=== PATIENT | male | born 1940 | race African-American/Black ===

== ENCOUNTER 2023-06-08 09:51 | Observation (INO) | payer BC, SELFPAY ==
[2023-06-08] VITALS (40 sets, daily range): BP systolic 152–196; BP diastolic 76–102; PULSE 59–93; RESP 11–28; TEMP 36.4–36.6; O2SAT 94–100
--- NOTE | ~2023-06-08 | CT_ITS ---
CT head without contrast Indication: Head injury Technique: Serial scans were obtained through the brain without the administration of contrast. Dose reduction technique was used on this scan by utilizing automated exposure control and iterative recon struction technique. The dose-length product (DLP) was 605.33 mGy-cm. Findings: There is no evidence of intracranial hemorrhage, mass lesion, or acute infarct. The ventri cles and subarachnoid spaces are dilated, consistent with moderate atrophy. Low attenuation regions are seen within the periventricular white matter bilaterally, likely representing changes from chroni c microvascular ischemic disease. There is no evidence of edema, mass effect or midline shift. The visualized paranasal sinuses and mastoid air cells are clear. Impression: No intracranial hemorrhage, mass, or acute infarct. Atrophy and chronic white matter changes, as above. Reviewed, dictated and finalized at [facility]. [employer] Impression: No intracranial hemorrhage, mass, or acute infarct. Atrophy and chronic white matter changes, as above.
--- NOTE | ~2023-06-08 | CT_ITS ---
CT Facial Bones Clinical Indication: Facial injury Technique: Contiguous axial scans were obtained through the facial bones followed by coronal and sagi ttal reconstructions. Dose reduction technique was used on this scan by utilizing automated exposure control and iterative reconstruction technique. The dose-length product (DLP) was 551.88 mGy-cm. Findings: No fractures are identified. The visualized paranasal sinuses are clear. Intraorbital soft tissues appear normal. There is mild left periorbital soft tissue swelling. Impression: No fracture identified. Mild left periorbital soft tissue swelling. Reviewed, dictated and finalized at location . [employer] Impression: No fracture identified. Mild left periorbital soft tissue swelling.
--- NOTE | ~2023-06-08 | CT_ITS ---
EXAMINATION: CTA BRAIN/CAROTID DATE: 06/08/2023 16:23 INDICATION: Vertigo TECHNIQUE: Computed tomographic angiography (CTA) of the head and neck was performed with 100 mL Omni paque-350 intravenous contrast. Multiplanar reconstructions and maximum intensity projection 3D-recon structions of the carotid arteries and of the intracranial arteries were created by the technologist on a separate workstation. Automated exposure control and iterative reconstruction technique were emp loyed.The dose-length product was 1132.63 mGy-cm. COMPARISON: Head and maxillofacial CT dated 06/08/2023 FINDINGS: Carotid arteries: Visualized portion of the aortic arch and great vessels arising from the arch demonstrate small amoun t of noncalcified atherosclerotic plaque without significant stenosis. No dissection. Left vertebral artery is dominant with no evident stenosis along the excreted portions of the bilateral vertebral ar teries. There is no evident atherosclerotic plaque with 0% stenosis of the right and left carotid bul bs relative to normal distal artery lumen diameter (NASCET criteria). Potentially refluxed fluid in t he visualized upper thoracic esophagus. Visualized portions of the mid and upper lungs are clear. Cer vical soft tissues are unremarkable. Severe cervical spondylosis. No acute osseous abnormality in the cervical spine. Intracranial arteries Left vertebral artery is dominant with small amount of nonhemodynamically significant atherosclerotic plaque at the level of the foramen magnum. There is no hemodynamically significant stenosis in the v ertebral, basilar and internal carotid arteries. There are no aneurysms identified. Both A1 and P1 s egments are patent. There is a patent anterior to indicating artery. Cerebral arterial arborization a ppears symmetric. No abnormally enhancing brain lesions identified. Changes of bilateral intraocular lens replacement. There is debris/cerumen at the left external auditory canal. The nasal sinuses, deep ateral middle ear cavities and mastoid air cells are clear. IMPRESSION: 1. 0% stenosis of the right and left carotid bulbs relative to normal distal artery lumen diameter (N ASCET criteria). 2. Unremarkable cerebral CT angiogram with no hemodynamically significant stenosis, aneurysm or throm bosis. Reviewed, dictated and finalized at location A. WE[employer] SALES ASSOCIATE IMPRESSION: 1. 0% stenosis of the right and left carotid bulbs relative to normal distal ar [place] lumen diameter (NASCET criteria). 2. Unremarkable cerebral CT angiogram with no hemodynamically significant steno sis, aneurysm or thrombosis.
--- NOTE | 2023-06-08 12:34 | PC.NURSE ---
Family reports that patients N/V started after he fell last night striking the left side of the face on a dresser. Pt c/o feeling dizzy prior to falling. Swelling and bruising noted to left eye.
[2023-06-08] MEDS: ONDANSETRON INJ 4 MG/2 ML VIAL IV PUSH ×2 (12:52→15:51)
[2023-06-08 13:06] LABS: Alanine Aminotransferase 17 U/L (6-50); Albumin Level 4.2 g/dL (3.5-5.1); Alkaline Phosphatase 83 U/L (38-126); Anion Gap 10 mmol/L (8-16); Aspartate Amino Transferase 25 U/L (17-59); Bilirubin,Total 0.7 mg/dL (0.2-1.3); Blood Urea Nitrogen 11 mg/dL (9-20); Carbon Dioxide 25 mmol/L (22-30); Chloride 104 mmol/L (98-107); Estimated CRCL calculation 61 ml/min; Estimated Glomerular Filt Rate > 60; Glucose 196 mg/dL (65-110); Lipase 32 U/L (23-300); Potassium 4.1 mmol/L (3.4-5.0); Sodium 139 mmol/L (137-145)
[2023-06-08 13:13] LABS: Basophils Percent Auto 0.3 % (0.2-1.2); Eosinophils Percent Auto 0.1 % (0-4.4); Hematocrit 40.3 % (42.0-52.0); Hemoglobin 13.6 g/dL (14.0-18.0); Immature Granulocyte Absolute 0.05 K/mm3 (0.00-0.031); Immature Granulocyte Percent A 0.4 % (0-0.5); Lymphocytes Absolute Auto 1.31 K/mm3 (0.9-3.2); Lymphocytes Percent Auto 9.7 % (18.3-44.2); Mean Corpuscular HGB Conc 33.7 g/dl (32-36); Mean Corpuscular Hemoglobin 32.9 pg (26-34); Mean Corpuscular Volume 97.3 fl (80-100); Monocytes Absolute Auto 0.5 K/mm3 (0.1-0.6); Monocytes Percent Auto 3.5 % (2.6-8.5); Neutrophils Absolute Auto 11.7 K/mm3 (1.3-6.7); Platelet Count Result 325 k/mm3 (150-375); Red Blood Count 4.14 M/mm3 (4.6-6.20); Red Cell Distribution Width 15.4 % (11.5-14.5); White Blood Count 13.6 K/mm3 (4.5-10.0)
--- NOTE | 2023-06-08 13:53 | ED.GENADULT ---
HPI - General Adult General Chief complaint: Nausea/Vomiting/Diarrhea Stated complaint: N/V BAD MEATLOAF Time Seen by Provider: 06/08/23 13:03 History of Present Illness HPI narrative: 83-year-old male presents to the emergency department for evaluation of nausea vomiting and a head injury. Patient states that he developed nausea and vomiting last night. Patient had 1 episode of emesis again this morning. Patient also had a ground level fall during which he struck his face. Patient denies any loss of consciousness. Patient does complain of some left-sided facial pain associated with a contusion over the left eye. At time of evaluation patient denies any complaints. Patient states he no longer feels nauseous after he received a dose of Zofran and patient denies any associated abdominal pain. Related Data Allergies Allergy/AdvReac Type Severity Reaction Status Date / Time No Known Allergies Allergy Verified 06/08/23 12:40 Review of Systems Review of Systems: All systems reviewed & are unremarkable except as noted in HPI and below Exam Narrative: APPEARANCE: Well appearing, no pain, no distress, well-nourished. HEAD: normocephalic, atraumatic. EYES: left eye contusion normal visual knutson NOSE: Normal no drainage EARS:TMS clear with good light reflex. THROAT: Pharynx clear, no exudate. NECK: Supple. No adenopathy, no masses. RESPIRATORY: Airway patent, respirations nonlabored. Clear to auscultation bilaterally, no rales, rhonchi, wheezing. CARDIOVASCULAR: Regular rate and rhythm without murmurs rubs or gallops. ABDOMINAL: Soft, nontender, nondistended, normal bowel sounds MUSCULOSKELETAL: Moves all extremities. Strength/ROM intact, No edema, No calf tenderness. NEURO: Alert. Cranial nerves II through XII intact. grossly intact. SKIN: Warm, dry. Normal Color Course Course Emergency Course: 83-year-old male presenting to the ED for evaluation of nausea vomiting and a left-sided facial injury. Head and facial CT were negative for acute findings. Patient does feel improved after treatment with Zofran. Patient denies any associated abdominal pain. Patient and family are updated on the results of the workup. All questions and concerns were addressed. Patient was comfortable plan for discharge close follow-up. Patient was advised to follow a clear liquid diet for the next few days and was provided Zofran for nausea control. Prior to discharge patient was ambulated and patient did not do well. Patient felt that he was having a movement/spinning sensation. CTA was ordered and patient was also provided meclizine. Vital Signs Vital signs: Vital Signs Temperature 97.9 F 06/08/23 10:14 Pulse Rate 63 06/08/23 10:14 Respiratory Rate 18 06/08/23 10:14 Blood Pressure 152/78 H 06/08/23 10:14 Pulse Oximetry 100 06/08/23 10:14 Oxygen Delivery Room Air 06/08/23 10:14 Temperature 97.9 F 06/08/23 10:14 Pulse Rate 71 06/08/23 17:50 Respiratory Rate 13 06/08/23 17:50 Blood Pressure 165/83 H 06/08/23 18:14 Pulse Oximetry 100 06/08/23 17:09 Oxygen Delivery Room Air 06/08/23 10:14 Medical Decision Making Differential Diagnosis Differential Diagnosis: vertigo, facial injury, CVA, TIA, nausea vomiting Vital Signs Vital Signs: Vital Signs Temperature 97.9 F 06/08/23 10:14 Pulse Rate 63 06/08/23 10:14 Respiratory Rate 18 06/08/23 10:14 Blood Pressure 152/78 H 06/08/23 10:14 Pulse Oximetry 100 06/08/23 10:14 Oxygen Delivery Room Air 06/08/23 10:14 Temperature 97.9 F 06/08/23 10:14 Pulse Rate 71 06/08/23 17:50 Respiratory Rate 13 06/08/23 17:50 Blood Pressure 165/83 H 06/08/23 18:14 Pulse Oximetry 100 06/08/23 17:09 Oxygen Delivery Room Air 06/08/23 10:14 Lab Data Lab results reviewed: Yes I reviewed the patient's lab results. 06/08/23 12:51 06/08/23 12:51 Labs: Lab Results 06/08/23 06/08/23 12/
[2023-06-08 14:27] LABS: Influenza A QL RT-PCR Negative (Negative); Influenza B QL RT-PCR Negative (Negative); RSV RNA, RT-PCR Negative (Negative); SARS-CoV-2 RNA PCR Negative (Negative)
[2023-06-08 15:19] LABS: Appearance Urine Clear (Clear); Bacteria Urine None Seen /hpf; Bilirubin Urine Negative (Negative); Blood Urine Negative (Negative); Color Urine Yellow (Yellow); Glucose Urine UA 2+ mg/dL (Negative); Ketones Urine Trace mg/dL (Negative); Leukocyte Esterase Ur Negative LEU/UL (Negative); Nitrate Urine Negative (Negative); Non Pathogenic Casts 0-2; Protein Urine 2+ mg/dL (Negative); RBC Urine 0-2 /hpf (0-2); Specific Grav Ur 1.018 (1.001-1.035); Squamous Epithelial Cell Urine None seen /hpf (Few); pH Urine 5.5 (5.0-9.0)
[2023-06-08 15:21] LABS: Add Urine Microscopic? YES
--- NOTE | 2023-06-08 15:45 | PC.NURSE ---
Attempted to discharge pt. Pt very unsteady when attempting to stand. Pt became nauseated and vomited when getting up. ERP aware.
--- NOTE | 2023-06-08 15:47 | PC.NURSE ---
unsuccessful ambulation attempt. pt weaving in hallway with his cane. kept changing from side to side to correct veering. this rn had to steady pt multiple times. family states this is not how pt normally walks. upon returning to bed pt began vomiting green bile. edp notified.
[2023-06-08] MEDS: MECLIZINE HCL 25 MG TABLET PO (15:51)
--- NOTE | 2023-06-08 17:17 | PC.NURSE ---
Attempted to ambulate pt again. Pt walked approx 20 feet and became unsteady on feet requiring assist of 2 staff to walk.
--- NOTE | 2023-06-08 17:56 | PM.IMHP ---
H&P: HPI History of Present Illness Date/Time: 06/08/23 18:00 Chief Complaint: Vertigo and nausea. Narrative: This is very pleasant 83-year-old male with hypertension, type 2 diabetes mellitus, and benign prostatic hyperplasia who presented to the emergency department via EMS from home for evaluation of vertigo and nausea. The patient provides the following history. He and his ate meatloaf for dinner last night and several hours thereafter he developed nausea. He was able to fall asleep but got up a little after midnight to go to the bathroom. When he stood up to get out of bed he reports feeling extremely dizzy and reports that the room was spinning severely. This caused him to lose his balance and he fell to the left, striking his head on the dresser. At the same time he felt extreme nausea and reports having several episodes of emesis. He denies loss of consciousness and injury in the fall. He was able to get himself up and go back to bed. He continues to have nausea and vertigo which is worse with position changes and head movement. He denies fever, chills, sweats, sinus congestion, diplopia, facial droop, difficulty speaking and swallowing, focal weakness, paresthesias, chest and pleuritic pain, palpitations, shortness of breath, epigastric and abdominal pain, hematemesis, melena, hematochezia. In the ED: He was afebrile on arrival with stable blood pressures which have been running in the 150s to 160s systolic. Labs were significant for a WBC count 13.6, hemoglobin 13.6, glucose 196. Urine was positive for 2+ protein, 2+ glucose, trace ketones, and 6 to 10 WBC. He tested negative for RSV, influenza, and COVID. Head CT showed no acute findings. Facial bone CT showed no fracture and noted mild left periorbital soft tissue swelling. Head and neck CTA showed no hemodynamically significant stenosis, aneurysm, thrombosis, or stenosis of the internal carotid arteries. He is being admitted in this setting for further treatment and evaluation. Review of Systems Review of Systems: Twelve systems were reviewed and are negative except for as per HPI. [facility], [facility] Past Medical History Medical History (Updated 06/08/23 @ 23:05 by Nydia Sanchez PA-C) Benign prostatic hyperplasia Hypertension Type 2 diabetes mellitus Surgical History Surgical History (Updated 06/08/23 @ 23:05 by Nydia Sanchez PA-C) History of transurethral resection of prostate Family History Family History (Updated 06/08/23 @ 23:05 by Nydia Sanchez PA-C) Other Diabetes mellitus Hypertension Social History Social History (Updated 06/08/23 @ 23:06 by Nydia Sanchez PA-C) Social History: Surrogate medical decision maker: Rowan Leone, spouse. Code status: Full code. Smoking status: Never smoker Second hand tobacco smoke exposure: No Alcohol intake: never Substance use: never Lack of Transportation: No Lack of Food: Never True Current Housing: I Have Housing Concerned About Future Housing: No Difficulty Paying Gas/Electric Bills: No Difficulty Paying for Meds: No Currently Unemployed: No Education: Don't Know Difficulty w/ Childcare or Family Care: No Additional living arrangements comments: Lives with spouse in [place]. 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 Spiritual care concerns: No Meds Home Medications and Allergies Home Medications Medication Instructions Recorded Confirmed Type dutasteride 0.5 mg capsule 0.5 mg PO DAILY 06/08/23 06/08/23 History finasteride 5 mg tablet 5 mg PO DAILY 06/08/23 06/08/23 History glyburide 5 mg tablet 10 mg PO DAILY 06/08/23 06/08/23 History metformin 1,000 mg tablet 1,000 mg PO BID 06/08/23 06/08/23 History ondansetron 4 mg disintegrating 4 mg PO Q8H PRN nausea and 06/08/23 Rx tablet vomiting #14 tabs tamsulosin 0.4 mg capsule 0.4 mg PO HS 06/08/23 06/08/23 History valsartan 80 mg tablet 80 mg PO CLEMENT
--- NOTE | 2023-06-08 18:28 | ADMGEN ---
This patient, Darrel Leone Jr., was admitted to Medical Room 345-01. Patient/family oriented to hospital policies and general routines including ID bracelet, bed and alarms, visiting hours, pain management, procedures, bathroom and other care routines, personal items, smoking policy, room service/diet, and visiting hours. Information on how to activate the Rapid Response Team has been discussed. Patient/Family are encouraged to report perceived risks to care and to ask questions if they do not understand what they are told or what they should do.
[2023-06-08 23:29] LABS: Glucose Point of Care 196 mg/dl (65-105)
[2023-06-09] VITALS (11 sets, daily range): BP systolic 123–164; BP diastolic 66–84; PULSE 57–74; RESP 18–20; TEMP 36.2–36.7; O2SAT 99–100
[2023-06-09] MEDS: TAMSULOSIN HCL 0.4 MG CAPSULE PO ×2 (00:57→20:26)
[2023-06-09 05:46] LABS: Hematocrit 38.6 % (42.0-52.0); Hemoglobin 13.6 g/dL (14.0-18.0); Mean Corpuscular HGB Conc 35.2 g/dl (32-36); Mean Corpuscular Hemoglobin 33.2 pg (26-34); Mean Corpuscular Volume 94.1 fl (80-100); Mean Platelet Volume 9.8 fl (7.4-10.4); Platelet Count Result 297 k/mm3 (150-375); Red Cell Distribution Width 14.6 % (11.5-14.5); White Blood Count 13.4 K/mm3 (4.5-10.0)
[2023-06-09 06:02] LABS: Anion Gap 10 mmol/L (8-16); Blood Urea Nitrogen 10 mg/dL (9-20); Calcium 8.9 mg/dL (8.4-10.2); Carbon Dioxide 22 mmol/L (22-30); Chloride 106 mmol/L (98-107); Cholesterol 131 mg/dL (0-200); Estimated CRCL calculation 55 ml/min; Estimated Glomerular Filt Rate > 60; Glucose 159 mg/dL (65-110); HDL Direct 42 mg/dL; Magnesium 1.9 mg/dL (1.6-2.3); Potassium 3.9 mmol/L (3.4-5.0); Sodium 138 mmol/L (137-145); Triglycerides 57 mg/dL (<150)
[2023-06-09 06:13] LABS: LDL Cholesterol Direct 69 mg/dL
[2023-06-09 07:00] LABS: Thyroid Stimulating Hormone Reflex 0.326 uIU/mL (0.465-4.68)
[2023-06-09 07:37] LABS: Hemoglobin A1C 5.8 % (<5.7)
[2023-06-09 07:45] LABS: Free T4 Free Thyroxine Reflex 1.06 ng/dL (0.78-2.19)
[2023-06-09 08:29] LABS: Glucose Point of Care 146 mg/dl (65-105)
[2023-06-09 08:33] LABS: Total Triiodothyronine (T3) 0.79 NG/ML (0.97-1.69)
[2023-06-09] MEDS: VALSARTAN 80 MG TABLET PO (10:11)
[2023-06-09] MEDS: glyBURIDE 5 MG TABLET 10 MG PO (10:11)
[2023-06-09] MEDS: DUTASTERIDE 0.5 MG CAPSULE PO (10:11)
[2023-06-09] MEDS: FINASTERIDE 5 MG TABLET PO (10:11)
[2023-06-09 12:25] LABS: Glucose Point of Care 148 mg/dl (65-105)
--- NOTE | 2023-06-09 14:07 | PM.IMPN ---
Progress Note: A&P Assessment and Plan (1) Vertigo: Code(s): R42 - Dizziness and giddiness Status: Acute Assessment and Plan: Suspect benign paroxysmal positional vertigo given the severity of the vertigo and it is positional nature associated with nausea and vomiting. It seems to be improved with certain positions. Brain MRI has been ordered Telemetry overnight. Echocardiogram pending Check orthostatic vital signs have remained negative. Meclizine q.i.d. p.r.n. for dizziness. (2) UTI (urinary tract infection): Code(s): N39.0 - Urinary tract infection, site not specified Status: Acute Assessment and Plan: Urine culture with 6-10 wbc's, 2+ protein, 2+ glucose and trace ketones. Urine culture pending (3) Hypertension: Code(s): I10 - Essential (primary) hypertension Status: Acute Assessment and Plan: Continue to monitor. (4) Type 2 diabetes mellitus: Code(s): E11.9 - Type 2 diabetes mellitus without complications Status: Acute Assessment and Plan: Insulin Lispro sliding scale, Accu-checks qAc and HS and Hold oral hypoglycemics Initiate hypoglycemic precautions (5) Benign prostatic hyperplasia: Code(s): N40.0 - Benign prostatic hyperplasia without lower urinary tract symptoms Status: Acute Assessment and Plan: Continue Tamsulosin Subjective Date/time seen: 06/09/23 14:07 Interval history: Patient doing well and states that he gets dizzy with changes of position. His description sounds like BPPV. He did have a left cerumen impaction and did ask nurse to do an ear wash of this. patient's at bedside. Answered all of patient and 's questions to the best my ability. Exam Narrative: GENERAL: Comfortable, no acute distress HENMT: moist mucous membranes, left cerumen impaction EYES: EOM intact b/l NECK: no lymphadenopathy RESPIRATORY: clear to auscultation CARDIO: RRR GI: soft, nontender, bowel sounds present SKIN: no rashes EXTREMITIES: no edema, redness or tenderness Objective Data Vital Signs Vital Signs: Vital Signs - 24 hr 06/08/23 14:15 06/08/23 14:17 06/08/23 14:31 Temperature Pulse Rate 60 64 65 Respiratory Rate 13 11 L 14 Blood Pressure 177/86 H Pulse Oximetry 98 100 100 Oxygen Delivery 06/08/23 14:32 12/05/23 14:48 06/08/23 15:00 Temperature Pulse Rate 68 63 Respiratory Rate 14 14 Blood Pressure 179/87 H 182/102 H Pulse Oximetry 99 99 Oxygen Delivery 06/08/23 15:02 06/08/23 15:06 06/08/23 15:19 Temperature Pulse Rate 59 L Respiratory Rate 16 Blood Pressure 186/85 H Pulse Oximetry 94 100 Oxygen Delivery 06/08/23 15:30 06/08/23 15:45 06/08/23 15:47 Temperature Pulse Rate 61 93 77 Respiratory Rate 13 14 13 Blood Pressure 196/95 H Pulse Oximetry 100 Oxygen Delivery 06/08/23 15:48 06/08/23 16:02 06/08/23 16:03 Temperature Pulse Rate 71 73 70 Respiratory Rate 16 14 14 Blood Pressure 171/90 H Pulse Oximetry 99 100 Oxygen Delivery 06/08/23 16:25 06/08/23 16:30 06/08/23 16:45 Temperature Pulse Rate 80 90 75 Respiratory Rate 13 18 15 Blood Pressure Pulse Oximetry Oxygen Delivery 06/08/23 17:00 06/08/23 17:09 06/08/23 17:34 Temperature Pulse Rate 71 89 Respiratory Rate 13 14 23 H Blood Pressure 160/91 H Pulse Oximetry 100 Oxygen Delivery 06/08/23 17:50 06/08/23 18:14 06/08/23 22:13 Temperature 97.5 F L Pulse Rate 71 66 Respiratory Rate 13 18 Blood Pressure 165/83 H 153/76 H Pulse Oximetry 100 Oxygen Delivery 06/08/23 23:29 06/08/23 20:00 06/09/23 00:00 Temperature 98 F Pulse Rate 89 64 57 L Respiratory Rate 17 Blood Pressure 169/102 H Pulse Oximetry 100 Oxygen Delivery 06/09/23 04:00 06/09/23 06:42 06/09/23 06:43 Temperature 97.1 F L Pulse Rate 61 64 Respiratory Rate 18 Blood Pressure
[2023-06-09 17:22] LABS: Glucose Point of Care 165 mg/dl (65-105)
[2023-06-09] MEDS: MECLIZINE HCL 12.5 MG TABLET PO ×2 (17:35→20:27)
--- NOTE | 2023-06-09 23:10 | ECHO_ITS ---
Patient Info Name: Darrel Leone Age: 83 years : 1940 Gender: Male Ht: 69 in Wt: 180 lbs BSA: 2.01 m2 HR: 64 bpm BP: 147 / 79 mmHg Heart Rhythm: Sinus Rhythm Technical Quality: Fair Exam Date: 06/09/2023 10:45 AM Exam Location: Echo Lab Patient Status: Inpatient Admit Date: 06/08/2023 Staff Ordering Physician: Nydia Sanchez PA-C Damper Fitter: Areli Gomes RDCS Attending Provider: Brandon Pimentel MD Referring Physician: Daniel REYNAGA; Exam Type: CA echo doppler color flow Study Info Indications - vertigo, htn Complete two-dimensional, color flow and Doppler transthoracic echocardiogram is performed. Summary 1. Technically difficult study with limited views. 2. Left ventricular chamber dimension is normal. 3. Left ventricular systolic function is normal, estimated at 60-65%. 4. The left ventricular diastolic function is grade I diastolic dysfunction. 5. Right ventricular systolic function is normal. 6. There is trivial anterior pericardial effusion. Left Ventricle Left ventricular chamber dimension is normal. Left ventricular systolic function is normal, estimated at 60-65%. There is no increased left ventricular wall thickness. The left ventricular diastolic function is grade I diastolic dysfunction. Right Ventricle Right ventricular chamber dimension is normal. Right ventricular systolic function is normal. Left Atria Left atrial chamber dimension is normal. Right Atria Right atrial chamber dimension is normal. Atrial Septum Atrial septum is not well visualized. Aortic Valve The aortic valve is not well visualized. There is no aortic valve stenosis. There is no aortic valve regurgitation. Pulmonic Valve The pulmonic valve is not well visualized. Mitral Valve There is trace mitral valve regurgitation. Tricuspid Valve There is trace tricuspid valve regurgitation. Pericardium/Pleural The pericardium appears epicardial fat pad. There is trivial anterior pericardial effusion. Inferior Vena Cava Inferior vena cava is not well visualized. Aorta The aortic root size at the sinus of Valsalva is normal. Left Ventricular Outflow Tract Name Value Normal LVOT 2D LVOT Diameter 2.0 cm LVOT Doppler LVOT Peak Gradient 3 mmHg LVOT Mean Gradient 2 mmHg LVOT VTI 16 cm LVOT VTI/AV VTI Ratio 0.6 LVOT Stroke Volume 52 ml LVOT CO 4.3 l/min LVOT CI 2.2 l/min/m2 Mitral Valve Name Value Normal MV Doppler MV Decel Christian 485 cm/s2 MV PHT 32 ms MV Area (PHT) 6.9 cm2 4.0-5.0 MV Diastolic Function MV E Peak Velocity 53 cm/s
[2023-06-10] VITALS (15 sets, daily range): BP systolic 114–153; BP diastolic 63–93; PULSE 53–94; RESP 16–21; TEMP 36.3–37.1; O2SAT 99–100
[2023-06-10 05:54] LABS: Hematocrit 37.6 % (42.0-52.0); Mean Corpuscular HGB Conc 34.6 g/dl (32-36); Mean Corpuscular Hemoglobin 32.9 pg (26-34); Mean Corpuscular Volume 95.2 fl (80-100); Mean Platelet Volume 9.8 fl (7.4-10.4); Platelet Count Result 275 k/mm3 (150-375); Red Blood Count 3.95 M/mm3 (4.6-6.20); Red Cell Distribution Width 14.9 % (11.5-14.5); White Blood Count 8.7 K/mm3 (4.5-10.0)
[2023-06-10 06:06] LABS: Alanine Aminotransferase 13 U/L (6-50); Albumin Level 3.3 g/dL (3.5-5.1); Alkaline Phosphatase 67 U/L (38-126); Anion Gap 6 mmol/L (8-16); Aspartate Amino Transferase 22 U/L (17-59); Bilirubin,Total 0.7 mg/dL (0.2-1.3); Blood Urea Nitrogen 16 mg/dL (9-20); Calcium 8.6 mg/dL (8.4-10.2); Carbon Dioxide 27 mmol/L (22-30); Chloride 105 mmol/L (98-107); Estimated CRCL calculation 49 ml/min; Estimated Glomerular Filt Rate > 60; Glucose 130 mg/dL (65-110); Potassium 3.6 mmol/L (3.4-5.0); Sodium 138 mmol/L (137-145)
[2023-06-10 06:09] LABS: Glucose Point of Care 164 mg/dl (65-105)
[2023-06-10 08:29] LABS: Glucose Point of Care 124 mg/dl (65-105)
[2023-06-10] MEDS: FINASTERIDE 5 MG TABLET PO (09:45)
[2023-06-10] MEDS: DUTASTERIDE 0.5 MG CAPSULE PO (09:45)
[2023-06-10] MEDS: MECLIZINE HCL 12.5 MG TABLET PO ×4 (09:45→20:47)
[2023-06-10] MEDS: VALSARTAN 80 MG TABLET PO (09:46)
[2023-06-10] MEDS: glyBURIDE 5 MG TABLET 10 MG PO (09:46)
[2023-06-10 11:55] LABS: Glucose Point of Care 247 mg/dl (65-105)
[2023-06-10] MEDS: INSULIN ASPART (*BKC) 100 UNITS/ML SUB-Q (12:15)
--- NOTE | 2023-06-10 12:37 | PM.IMPN ---
Progress Note: A&P Assessment and Plan (1) Vertigo: Code(s): R42 - Dizziness and giddiness Status: Acute Assessment and Plan: Suspect benign paroxysmal positional vertigo given the severity of the vertigo and it is positional nature associated with nausea and vomiting. It seems to be improved with certain positions. Brain MRI has been ordered but could not be done due to unknown surgical history. Telemetry overnight. Echocardiogram With EF of 60-65%, grade 1 diastolic dysfunction Check orthostatic vital signs have remained negative. Meclizine q.i.d. p.r.n. for dizziness -- improved (2) UTI (urinary tract infection): Code(s): N39.0 - Urinary tract infection, site not specified Status: Acute Assessment and Plan: Urine culture with 6-10 wbc's, 2+ protein, 2+ glucose and trace ketones. Urine culture pending (3) Hypertension: Code(s): I10 - Essential (primary) hypertension Status: Acute Assessment and Plan: Continue to monitor. (4) Type 2 diabetes mellitus: Code(s): E11.9 - Type 2 diabetes mellitus without complications Status: Acute Assessment and Plan: Insulin Lispro sliding scale, Accu-checks qAc and HS and Hold oral hypoglycemics Initiate hypoglycemic precautions (5) Benign prostatic hyperplasia: Code(s): N40.0 - Benign prostatic hyperplasia without lower urinary tract symptoms Status: Acute Assessment and Plan: Continue Tamsulosin Subjective Date/time seen: 06/10/23 12:37 Interval history: Patient doing well today. Meclizine helping overall dizziness. He is still pretty unstable on his feet. Had long discussion with both patient and his about how SNF when the highly beneficial to them due to risk of going home at this time. Patient's is agreeable to this. I have contacted care coordination for further assessment of possible placement. Exam Narrative: GENERAL: Comfortable, no acute distress HENMT: moist mucous membranes, left cerumen impaction EYES: EOM intact b/l NECK: no lymphadenopathy RESPIRATORY: clear to auscultation CARDIO: RRR GI: soft, nontender, bowel sounds present SKIN: no rashes EXTREMITIES: no edema, redness or tenderness Objective Data Vital Signs Vital Signs: Vital Signs - 24 hr 06/09/23 14:00 06/09/23 16:00 06/09/23 20:00 Temperature 98.1 F Pulse Rate 66 70 73 Respiratory Rate 20 Blood Pressure 123/66 Pulse Oximetry 99 Oxygen Delivery 06/09/23 20:00 06/09/23 22:25 06/10/23 00:00 Temperature 97.5 F L Pulse Rate 70 59 L 55 L Respiratory Rate 20 20 Blood Pressure 147/77 H Pulse Oximetry 99 99 Oxygen Delivery Room Air 06/10/23 04:00 06/10/23 06:00 06/10/23 06:00 Temperature 97.4 F L 97.4 F L Pulse Rate 62 60 60 Respiratory Rate 21 H 21 H Blood Pressure 152/74 H 152/74 H Pulse Oximetry 100 100 Oxygen Delivery 06/10/23 06:05 06/10/23 06:10 06/10/23 08:00 Temperature 97.8 F 97.4 F L Pulse Rate 66 76 Respiratory Rate 20 21 H Blood Pressure 144/74 H 153/93 H Pulse Oximetry 99 100 Oxygen Delivery Room Air 06/10/23 10:25 06/10/23 10:25 06/10/23 10:25 Temperature Pulse Rate Respiratory Rate Blood Pressure 145/91 H 114/63 134/78 Pulse Oximetry Oxygen Delivery Intake/Output Intake/Output: Intake & Output 06/07/23 06/08/23 06/09/23 06/10/23 23:59 23:59 23:59 23:59 Intake Total 300 942 640 Output Total 500 400 Balance 300 442 240 Meds/Results Medications: Active Medications Generic Name Dose Route Start Last Admin Trade Name Freq PRN Reason Stop Dose Admin Acetaminophen 650 mg 06/08/23 23:10 Acetaminophen 325 Mg Tablet PO Q6H PRN Mild Pain (1-3) or Fever Dextrose 12.5 gm 06/08/23 23:10 Dextrose 50% 25 Gm/50 Ml Syringe IV PUSH PRN PRN Hypoglycemia Protocol Dutasteride 0.5 mg 06/09/23 0
[2023-06-10 17:14] LABS: Glucose Point of Care 96 mg/dl (65-105)
[2023-06-10] MEDS: TAMSULOSIN HCL 0.4 MG CAPSULE PO (20:47)
[2023-06-11] VITALS: PULSE 95
[2023-06-11 04:00] VITALS: PULSE 61
[2023-06-11 05:47] LABS: Hematocrit 38.6 % (42.0-52.0); Hemoglobin 13.4 g/dL (14.0-18.0); Mean Corpuscular HGB Conc 34.7 g/dl (32-36); Mean Corpuscular Volume 95.1 fl (80-100); Mean Platelet Volume 9.7 fl (7.4-10.4); Platelet Count Result 303 k/mm3 (150-375); Red Blood Count 4.06 M/mm3 (4.6-6.20); Red Cell Distribution Width 14.6 % (11.5-14.5); White Blood Count 9.1 K/mm3 (4.5-10.0)
[2023-06-11 05:57] LABS: Alanine Aminotransferase 16 U/L (6-50); Albumin Level 3.3 g/dL (3.5-5.1); Alkaline Phosphatase 71 U/L (38-126); Anion Gap 6 mmol/L (8-16); Aspartate Amino Transferase 24 U/L (17-59); Blood Urea Nitrogen 19 mg/dL (9-20); Calcium 8.7 mg/dL (8.4-10.2); Carbon Dioxide 25 mmol/L (22-30); Chloride 107 mmol/L (98-107); Estimated CRCL calculation 49 ml/min; Estimated Glomerular Filt Rate > 60; Glucose 126 mg/dL (65-110); Potassium 3.8 mmol/L (3.4-5.0); Sodium 138 mmol/L (137-145)
[2023-06-11 06:00] VITALS: BP 133/68; PULSE 68; RESP 21; TEMP 36.3; O2SAT 100
[2023-06-11 08:00] VITALS: PULSE 64
[2023-06-11 08:42] LABS: Glucose Point of Care 145 mg/dl (65-105)
--- NOTE | 2023-06-11 09:20 | PCPTNOTE ---
Attempted to see patient for PT, however patient was eating breakfast.
[2023-06-11] MEDS: DUTASTERIDE 0.5 MG CAPSULE PO (09:40)
[2023-06-11] MEDS: MECLIZINE HCL 12.5 MG TABLET PO ×2 (09:40→13:04)
[2023-06-11] MEDS: VALSARTAN 80 MG TABLET PO (09:40)
[2023-06-11] MEDS: glyBURIDE 5 MG TABLET 10 MG PO (09:40)
[2023-06-11] MEDS: FINASTERIDE 5 MG TABLET PO (09:40)
[2023-06-11 12:00] VITALS: PULSE 123
--- NOTE | 2023-06-11 12:06 | PM.DS ---
DS: Admitting Diagnosis Discharge Date 06/11/23 Admitting Diagnosis dizziness DS: Discharge Diagnosis Discharge Diagnosis (1) Vertigo: Code(s): R42 - Dizziness and giddiness Status: Acute Assessment and Plan: Suspect benign paroxysmal positional vertigo given the severity of the vertigo and it is positional nature associated with nausea and vomiting. It seems to be improved with certain positions. Brain MRI has been ordered but could not be done due to unknown surgical history. Telemetry overnight. Echocardiogram With EF of 60-65%, grade 1 diastolic dysfunction Check orthostatic vital signs have remained negative. Meclizine q.i.d. p.r.n. for dizziness -- improved (2) UTI (urinary tract infection): Code(s): N39.0 - Urinary tract infection, site not specified Status: Acute Assessment and Plan: Urine culture with 6-10 wbc's, 2+ protein, 2+ glucose and trace ketones. Urine culture no growth (3) Hypertension: Code(s): I10 - Essential (primary) hypertension Status: Acute Assessment and Plan: Continue to monitor. (4) Type 2 diabetes mellitus: Code(s): E11.9 - Type 2 diabetes mellitus without complications Status: Acute Assessment and Plan: Insulin Lispro sliding scale, Accu-checks qAc and HS and Hold oral hypoglycemics Initiate hypoglycemic precautions (5) Benign prostatic hyperplasia: Code(s): N40.0 - Benign prostatic hyperplasia without lower urinary tract symptoms Status: Acute Assessment and Plan: Continue Tamsulosin DS: Summary Hospital Course Hospital Course: This is an 83-year-old male with a past medical history of hypertension , diabetes, dementia and BPH the present to the ED due to dizziness and nausea. [place] in [place] after trying to get up to go to the bathroom. He states that he had extreme dizziness as well as striking his head on the dresser. He denied losing consciousness. He had nausea during the dizziness episode that caused vomiting. He was afebrile on arrival with stable blood pressures which have been running in the 150s to 160s systolic. Labs were significant for a WBC count 13.6, hemoglobin 13.6, glucose 196. Urine was positive for 2+ protein, 2+ glucose, trace ketones, and 6 to 10 WBC. Urine culture showed no growth. He tested negative for RSV, influenza, and COVID. Head CT showed no acute findings. Facial bone CT showed no fracture and noted mild left periorbital soft tissue swelling. Head and neck CTA showed no hemodynamically significant stenosis, aneurysm, thrombosis, or stenosis of the internal carotid arteries.? He was unable to get an MRI due to not having a complete history of previous surgeries. He did have more dizziness with changes of position. His orthostatics remain negative. He did have some cerumen in his left ear and was advised to use Debrox. Patient was started on meclizine 12.5 q.i.d.. This helped with patient's dizziness. Patient did work with therapy and had some unsteadiness on his feet. Care coordination consulted for possible rehab. Due to patient's insurance he was unable to be accepted into a rehab facility. Home health was set up for the patient. his labs and vital signs are stable he is medically clear for discharge at this time. Time Spent with Patient Time attestation: Total time spent providing and/or coordinating discharge services: Exam Narrative: GENERAL: Comfortable, no acute distress HENMT: moist mucous membranes EYES: EOM intact b/l NECK: no lymphadenopathy RESPIRATORY: clear to auscultation CARDIO: RRR GI: soft, nontender, bowel sounds present SKIN: no rashes EXTREMITIES: no edema, redness or tenderness DS: Data Data Completed and Pending Labs on day of discharge: Labs from last 24 hours 06/11/23 06/11/23 06/10/23 08:37 05:24 17:11 WBC 9.1 RBC 4.06 L Hgb 13.4 L H
[2023-06-11 12:28] LABS: Glucose Point of Care 322 mg/dl (65-105)
[2023-06-11] MEDS: INSULIN ASPART (*BKC) 100 UNITS/ML SUB-Q (13:05)
== END 2023-06-11 16:54 | disposition home health service (06) ==
LOC: ANHED 15:27 → ANH3MED 18:33
PROVIDERS: Internal Medicine Critical Care Medicine; Physician Assistant; Admitting Provider Family Medicine; Emergency Provider Emergency Medicine; Visit Provider Internal Medicine
DX: R42 Dizziness and giddiness (principal); N39.0 Urinary tract infection, site not specified; E11.9 Type 2 diabetes mellitus without complications; N40.0 Benign prostatic hyperplasia without lower urinary tract symptoms; S09.93XA Unspecified injury of face, initial encounter; H05.222 Edema of left orbit; W19.XXXA Unspecified fall, initial encounter; Z20.822 Contact with and (suspected) exposure to COVID-19; I11.9 Hypertensive heart disease without heart failure; D72.829 Elevated white blood cell count, unspecified; Z79.84 Long term (current) use of oral hypoglycemic drugs; Z79.899 Other long term (current) drug therapy
CPT/HCPCS: 36415; 70450; 70486; 70496; 70498; 80048; 80053; 80061; 81001; 82948; 83036; 83690; 83735; 84439; 84443; 84480; 85025; 85027; 87086; 87088; 87637; 93306; 96374; 96376; 97116; 97161; 97165; 97530; 97535; 99285; A9270; G0378; J1815; J2405; Q9967

== ENCOUNTER 2024-02-09 16:00 | Observation (INO) | payer BC, SELFPAY ==
--- NOTE | ~2024-02-09 | XR_ITS ---
XR chest 2V Ordering provider: Sabina Kuhn MD History: 84 years Male with . weakness . Comparison: None. FINDINGS: MEDIASTINUM: The cardiac silhouette is not enlarged. LUNGS: No infiltrates, effusions or pneumothorax. Underlying emphysematous changes. OTHER: No free air under the diaphragm. Degenerative changes of the spine. IMPRESSION: No acute cardiopulmonary pathology. Reviewed, dictated and finalized at location A.
--- NOTE | 2024-02-09 16:08 | ECG_ITS ---
Test Date: 2024-02-09 16:09:57 Measurements Intervals [place] Rate: 84 P: 58 KS: 160 QRS: 26 QRSD: 106 T: 30 QT: 373 QTc: 442 Interpretive Statements SINUS RHYTHM NONSPECIFIC T-WAVE ABNORMALITY No previous ECG available for comparison Electronically Signed On 02-09-2024 17:16:42 CDT by Trever Olivia M.D.
[2024-02-09 16:18] VITALS: BP 134/69; PULSE 86; RESP 18; TEMP 36.4; O2SAT 99
[2024-02-09 17:36] LABS: Basophils Absolute Auto 0.1 K/mm3 (0.0-0.1); Eosinophils Absolute Auto 0.2 K/mm3 (0-0.3); Eosinophils Percent Auto 2.8 % (0-4.4); Hematocrit 41.1 % (42.0-52.0); Hemoglobin 14.2 g/dL (14.0-18.0); Immature Granulocyte Absolute 0.02 K/mm3 (0.00-0.031); Immature Granulocyte Percent A 0.3 % (0-0.5); Lymphocytes Absolute Auto 3.24 K/mm3 (0.9-3.2); Lymphocytes Percent Auto 41.3 % (18.3-44.2); Mean Corpuscular HGB Conc 34.5 g/dl (32-36); Mean Corpuscular Hemoglobin 33.3 pg (26-34); Mean Corpuscular Volume 96.3 fl (80-100); Mean Platelet Volume 10.4 fl (7.4-10.4); Monocytes Absolute Auto 0.5 K/mm3 (0.1-0.6); Monocytes Percent Auto 6.8 % (2.6-8.5); Neutrophils Absolute Auto 3.8 K/mm3 (1.3-6.7); Neutrophils Percent Auto 47.8 % (45.5-73.1); Platelet Count Result 292 k/mm3 (150-375); Red Blood Count 4.27 M/mm3 (4.6-6.20); Red Cell Distribution Width 13.6 % (11.5-14.5); White Blood Count 7.9 K/mm3 (4.5-10.0)
[2024-02-09 17:56] LABS: Alanine Aminotransferase 23 U/L (6-50); Albumin Level 4.3 g/dL (3.5-5.1); Alkaline Phosphatase 111 U/L (38-126); Anion Gap 16 mmol/L (4-12); Aspartate Amino Transferase 32 U/L (17-59); Bilirubin,Total 0.6 mg/dL (0.2-1.3); Blood Urea Nitrogen 16 mg/dL (9-20); Calcium 8.9 mg/dL (8.4-10.2); Carbon Dioxide 21 mmol/L (22-30); Chloride 94 mmol/L (98-107); Estimated CRCL calculation 38 ml/min; Estimated Glomerular Filt Rate > 60; Glucose 573 mg/dL (65-110); Potassium 3.9 mmol/L (3.4-5.0); Sodium 131 mmol/L (137-145)
[2024-02-09 18:13] LABS: Influenza A QL RT-PCR Negative (Negative); Influenza B QL RT-PCR Negative (Negative); RSV RNA, RT-PCR Negative (Negative); SARS-CoV-2 RNA PCR Negative (Negative)
[2024-02-09 18:26] LABS: Beta-Hydroxybutyrate/Acetoacetate 0.54 mmol/L (0.02-0.27)
[2024-02-09] MEDS: POTASSIUM CHLORIDE 20 MEQ ER TABLET 40 MEQ PO (18:51)
[2024-02-09] MEDS: INSULIN HUMAN REGULAR (*BKC) 100 UNITS/ML 12 UNITS IV PUSH (18:51)
[2024-02-09] MEDS: SODIUM CHLORIDE 0.9% IV 1,000 ML 999 ML IV CONT (18:51)
--- NOTE | 2024-02-09 18:59 | ED.GENADULT ---
HPI - General Adult General Chief complaint: Weakness Stated complaint: weakness Time Seen by Provider: 02/09/24 17:13 History of Present Illness HPI narrative: 84-year-old male presenting emergency department for evaluation for increased generalized weakness over the past 5 days. Patient is a type 2 diabetic. Denies any coughs colds fevers, nausea vomiting, diarrhea, chest pain or shortness of breath, pain with urination. Patient states he has had to use his cane more over the last 5 days, patient denies any falls or injuries. Upon arrival to the emergency department patient appears to be in no distress. Related Data Home Medications Medication Instructions Recorded Confirmed dutasteride 0.5 mg capsule 0.5 mg PO DAILY 06/08/23 06/08/23 finasteride 5 mg tablet 5 mg PO DAILY 06/08/23 06/08/23 glyburide 5 mg tablet 10 mg PO DAILY 06/08/23 06/08/23 metformin 1,000 mg tablet 1,000 mg PO BID 06/08/23 06/08/23 tamsulosin 0.4 mg capsule 0.4 mg PO HS 06/08/23 06/08/23 valsartan 80 mg tablet 80 mg PO DAILY 06/08/23 06/08/23 Allergies Allergy/AdvReac Type Severity Reaction Status Date / Time No Known Allergies Allergy Verified 06/08/23 12:40 Review of Systems Review of Systems: All systems reviewed & are unremarkable except as noted in HPI and below PMFSH Past Medical History Medical History (Updated 02/09/24 @ 19:03 by Andrei Spann MD) Benign prostatic hyperplasia Hypertension Type 2 diabetes mellitus Surgical History Surgical History (Updated 06/08/23 @ 23:05 by Nydia Sanchez PA-C) History of transurethral resection of prostate Family History Family History (Updated 06/08/23 @ 23:05 by Nydia Sanchez PA-C) Other Diabetes mellitus Hypertension Social History Social History (Updated 06/08/23 @ 23:06 by Nydia Sanchez PA-C) Social History: Surrogate medical decision maker: Rowananahi Franklinley, spouse. Code status: Full code. Smoking status: Never smoker Second hand tobacco smoke exposure: No Alcohol intake: never Substance use: never Do You Feel Safe in your Home?: Yes Lack of Transportation: No Lack of Food: Never True Current Housing: I Have Housing Concerned About Future Housing: No Difficulty Paying Gas/Electric Bills: No Difficulty Paying for Meds: No Currently Unemployed: No Education: Don't Know Difficulty w/ Childcare or Family Care: No Additional living arrangements comments: Lives with spouse in [place]. 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 Spiritual care concerns: No Exam Narrative: APPEARANCE: Well-appearing HEAD: normocephalic, atraumatic. EYES: PERRLA/EOMI, conjunctivae clear. NOSE: Normal no drainage EARS:TMS clear with good light reflex. THROAT: Pharynx clear, no exudate. NECK: Supple. No adenopathy, no masses. RESPIRATORY: Airway patent, respirations nonlabored. Clear to auscultation bilaterally, no rales, rhonchi, wheezing. CARDIOVASCULAR: Regular rate and rhythm without murmurs rubs or gallops. ABDOMINAL: Soft, nontender, nondistended, normal bowel sounds MUSCULOSKELETAL: Moves all extremities. Strength/ROM intact, No edema, No calf tenderness. NEURO: Alert. Cranial nerves II through XII intact. SKIN: Warm, dry. Normal Color Course Course Emergency Course: Patient was admitted to the ICU for DKA Vital Signs Vital signs: Vital Signs Temperature 97.6 F 02/09/24 16:18 Pulse Rate 86 02/09/24 16:18 Respiratory Rate 18 02/09/24 16:18 Blood Pressure 134/69 02/09/24 16:18 Pulse Oximetry 99 02/09/24 16:18 Temperature 97.6 F 02/09/24 16:18 Pulse Rate 86 02/09/24 16:18 Respiratory Rate 18 02/09/24 16:18 Blood Pressure 134/69 02/09/24 16:18 Pulse Oximetry 99 02/09/24 16:18 Medical Decision Making MDM Narrative Medical decision making narrative: 84 old male presenting to the emergency department for evaluation for
[2024-02-09 19:22] LABS: Add Urine Microscopic? YES; Appearance Urine Cloudy (Clear); Bacteria Urine None Seen /hpf; Bilirubin Urine Negative (Negative); Blood Urine Negative (Negative); Color Urine Yellow (Yellow); Glucose Urine UA 3+ mg/dL (Negative); Ketones Urine Trace mg/dL (Negative); Leukocyte Esterase Ur 1+ LEU/UL (Negative); Need Manual Microscopic Reviewed; Nitrate Urine Positive (Negative); Non Pathogenic Casts 0-2; Protein Urine Negative (Negative); RBC Urine 0-2 /hpf (0-2); Specific Grav Ur 1.034 (1.001-1.035); Squamous Epithelial Cell Urine None Seen /hpf (Few); WBC Urine >100 /hpf (0-3); pH Urine 5.5 (5.0-9.0)
--- NOTE | 2024-02-09 19:22 | PC.NURSE ---
Sister Leigh taking pt's belonging's to her house:purse, clothes, shoes
[2024-02-09 19:56] LABS: Phosphorus 2.2 mg/dL (2.5-4.5)
[2024-02-09 19:57] LABS: Anion Gap 12 mmol/L (4-12); Blood Urea Nitrogen 14 mg/dL (9-20); Calcium 8.5 mg/dL (8.4-10.2); Carbon Dioxide 22 mmol/L (22-30); Chloride 103 mmol/L (98-107); Estimated CRCL calculation 42 ml/min; Estimated Glomerular Filt Rate > 60; Glucose 206 mg/dL (65-110); Potassium 3.6 mmol/L (3.4-5.0); Sodium 137 mmol/L (137-145)
[2024-02-09 19:59] VITALS: BP 149/85; PULSE 78; RESP 14; O2SAT 100
--- NOTE | 2024-02-09 20:16 | PC.NURSE ---
blood sugar is 182 at this time
[2024-02-09 20:22] LABS: Glucose Point of Care 182 mg/dl (65-105)
--- NOTE | 2024-02-09 20:22 | PM.IMHP ---
H&P: HPI History of Present Illness Date/Time: 02/09/24 20:22 Chief Complaint: Weakness for 5 days Narrative: 84-year-old male with past medical history of essential hypertension, type 2 diabetes mellitus, and BPH who presented to ER with generalized weakness for 5 days. The patient is oriented only to his name and the name of the hospital. He thinks that he is in [place]. He was unable to even give me gas as to the month or the year. Patient is a diabetic but has not had any of his diabetic medications filled since last fall. According to the ER documentation the patient was so weak that he needed to start using a cane over the last 5 days. He denies any nausea or vomiting. He denies difficulty with urination or dysuria. He denies changes in urinary frequency. His glucoses on arrival to ER were 573. On review of external med reconciliation the patient does not appear to of had his medications refilled since last April. He used to work for the [employer] system I am wondering if the patient may get his medications from the [facility]??? He denies any complaints currently. He states that he wears a partial denture in his upper jaw but he is completely edentulous in his upper jaw. He states he wears a complete denture in his lower jaw but he has remaining teeth in his lower jaw. Patient is a terrible historian and review of systems is not reliable. The patient reports that he has chronic memory difficulties and is not unusual for him to not know this information. Review of Systems Review of Systems: ROS unobtainable: Yes unobtainable due to mental status PMFSH Past Medical History Medical History (Updated 02/10/24 @ 04:57 by Yvette Bonilla DO) Benign prostatic hyperplasia Hypertension Type 2 diabetes mellitus A1c greater than 14 prior A1c June 2023 was 5.8 Surgical History Surgical History (Updated 02/10/24 @ 04:52 by Yvette Bonilla DO) History of transurethral resection of prostate Status post cataract extraction of both eyes with insertion of intraocular lens Family History Family History Other Diabetes mellitus Hypertension Social History Social History (Updated 02/10/24 @ 04:51 by Yvette Bonilla DO) Social History: According to administrative documentation he is and lives in [place]. He is . He reports that he is a lifelong nonsmoker. He does not drink alcohol or use illicit substances. He ambulates with a cane on occasion. 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 Surrogate medical decision maker: Rowan Franklinley, spouse. Code status: Full code. Smoking status: Never smoker Second hand tobacco smoke exposure: No Alcohol intake: never Substance use: never Do You Feel Safe in your Home?: Yes Lack of Transportation: No Lack of Food: Never True Current Housing: I Have Housing Concerned About Future Housing: No Difficulty Paying Gas/Electric Bills: No Difficulty Paying for Meds: No Currently Unemployed: No Education: Grade School Difficulty w/ Childcare or Family Care: No Additional living arrangements comments: Lives with spouse in [place]. 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 Spiritual care concerns: No Meds Home Medications and Allergies Home Medications Medication Instructions Recorded Confirmed Type finasteride 5 mg tablet 5 mg PO DAILY 06/08/23 02/09/24 History Allergies Allergy/AdvReac Type Severity Reaction Status Date / Time No Known Allergies Allergy Verified 02/09/24 22:08 Vital Signs Vital Signs - 24 hr 02/09/24 16:18 02/09/24 19:59 Temperature 97.6 F Pulse Rate 86 78 Respiratory Rate 18 14 Blood Pressure 134/69 149/85 H Pulse Oximetry 99 100 Exam Narrative: Weight 77 kg BMI 26.6 Const: Other: Thin body habitus, no acute distress, appears
[2024-02-09] MEDS: SODIUM CHLORIDE 0.9% IV 1,000 ML 150 ML IV CONT (20:30)
[2024-02-09] MEDS: INSULIN HUMAN REGULAR (*BKC) 100 UNITS in SODIUM CHLORIDE 0.9% IV 99 ML 7.7 UNITS IV CONT (20:32)
[2024-02-09 20:34] LABS: Hemoglobin A1C > 14.0 % (<5.7)
[2024-02-09 21:30] VITALS: BP 138/86; PULSE 95; RESP 18; O2SAT 98
[2024-02-09 21:44] VITALS: PULSE 70
[2024-02-09 21:49] VITALS: BP 147/78; PULSE 75; RESP 16; TEMP 35.7; O2SAT 96
--- NOTE | 2024-02-09 21:49 | ADMGEN ---
This patient, Darrel Leone Jr., was admitted to [facility] Surg Room 314-02. Patient/family oriented to hospital policies and general routines including ID bracelet, bed and alarms, visiting hours, pain management, procedures, bathroom and other care routines, personal items, smoking policy, room service/diet, and visiting hours. Information on how to activate the Rapid Response Team has been discussed. Patient/Family are encouraged to report perceived risks to care and to ask questions if they do not understand what they are told or what they should do.
[2024-02-09 21:50] VITALS: BMI 23.7
[2024-02-09 21:55] VITALS: PULSE 63; RESP 16; O2SAT 96
[2024-02-09 22:19] LABS: Glucose Point of Care 126 mg/dl (65-105)
[2024-02-09] MEDS: KCL 20 MEQ/D5/0.45% SOD CHL 1,000 ML 150 ML IV CONT (22:23)
[2024-02-10] VITALS (10 sets, daily range): BP systolic 118–144; BP diastolic 69–90; PULSE 56–71; RESP 18; TEMP 35.6–36.4; O2SAT 97–100
[2024-02-10] MEDS: SODIUM CHLORIDE 0.9% IV 1,000 ML 100 ML IV CONT ×3 (01:55→20:35)
[2024-02-10 08:02] LABS: Glucose Point of Care 286 mg/dl (65-105)
[2024-02-10] MEDS: glyBURIDE 5 MG TABLET PO (10:12)
[2024-02-10] MEDS: FINASTERIDE 5 MG TABLET PO (10:12)
[2024-02-10] MEDS: ENOXAPARIN 40 MG/0.4 ML SYRINGE SUB-Q (10:13)
[2024-02-10] MEDS: INSULIN ASPART (*BKC) 100 UNITS/ML SUB-Q ×4 (10:15→18:11)
[2024-02-10] MEDS: INSULIN GLARGINE (*BKC) 100 UNITS/ML 20 UNITS SUB-Q (10:16)
[2024-02-10 11:36] LABS: Glucose Point of Care 335 mg/dl (65-105)
--- NOTE | 2024-02-10 13:14 | PM.IMPN ---
Progress Note: A&P Assessment and Plan (1) Uncontrolled type 2 diabetes mellitus: Qualifiers: Glycemic state: with hyperglycemia Qualified Code(s): E11.65 - Type 2 diabetes mellitus with hyperglycemia Status: Acute Assessment and Plan: Patient has uncontrolled diabetes mellitus with A1c greater than 14. has not been compliant with meds at home Started lantus 20u, premeal 5 unit and SSI with accucheks continue close monitoring (2) DKA (diabetic ketoacidosis): Qualifiers: Diabetes mellitus complication detail: without coma Diabetes mellitus type: type 2 Qualified Code(s): E11.10 - Type 2 diabetes mellitus with ketoacidosis without coma Code(s): E11.10 - Type 2 diabetes mellitus with ketoacidosis without coma Status: Acute Assessment and Plan: DKA resolved status post IV fluid and IV insulin. Started patient on subQ regimen as noted above. Monitor closely. (3) Benign prostatic hyperplasia: Qualifiers: Lower urinary tract symptom presence: unspecified whether lower urinary tract symptoms present Qualified Code(s): N40.0 - Benign prostatic hyperplasia without lower urinary tract symptoms Code(s): N40.0 - Benign prostatic hyperplasia without lower urinary tract symptoms Status: Acute Assessment and Plan: Will continue home finasteride. (4) Generalized weakness: Code(s): R53.1 - Weakness Status: Acute Assessment and Plan: Likely due to hyperglycemia. PT OT on board. (5) Hypertension: Qualifiers: Hypertension type: primary hypertension Qualified Code(s): I10 - Essential (primary) hypertension Code(s): I10 - Essential (primary) hypertension Status: Acute Assessment and Plan: Blood pressure is stable. Patient has not had his blood pressure medications refilled as far as I can tell since last April. Blood pressure mildly elevated, restart home medicines. (6) Abnormal finding on urinalysis: Code(s): R82.90 - Unspecified abnormal findings in urine Status: Acute Assessment and Plan: Patient does have nitrates in his urine and greater than 100 wbc's. The patient may have underlying UTI. Will send the urine for culture. Will continue empiric antibiotic therapy with Rocephin Urine culture pending. Plan Patient has been admitted as observation status. Subjective Date/time seen: 02/10/24 13:14 Interval history: patient very comfortable at bedside, however he started Sq insulin today and will have to be monitored overnight for control prior to discharge tomorrow Review of Systems Review of Systems: 12 systems were reviewed with pertinent positives and negatives per HPI. Except as documented in the HPI, all other systems were reviewed and are negative. ROS unobtainable: Yes unobtainable due to mental status Exam Narrative: Weight 77 kg BMI 26.6 Const: Other: Thin body habitus, no acute distress, appears stated age HENMT: Other: Mucous membranes are dry, edentulous in the upper jaw, few remaining teeth in lower jaw that are in poor condition, no oral pharyngeal erythema, head is normocephalic atraumatic Eyes: Other: Pupils are equal and reactive, evidence of lens replacements in bilateral eyes, mild conjunctival erythema of the right eye, no scleral icterus Neck: Other: No JVD, supple, nontender Resp: Other: Clear to auscultation bilaterally, no increased work of breathing Cardio: Other: Regular rate, regular rhythm, 2+ bilateral radial pedal pulses GI: Other: Soft, nontender, nondistended, positive bowel sounds Skin: Other: No jaundice, no pallor Neuro: Other: Alert oriented to person and the fact that he is in the hospital, he did not know which hospital he was in, he does not know the month or year, speech is clear, no facial asymmetry, no gross mot
[2024-02-10 16:23] LABS: Glucose Point of Care 101 mg/dl (65-105)
[2024-02-10 20:20] LABS: Glucose Point of Care 148 mg/dl (65-105)
[2024-02-11] VITALS (9 sets, daily range): BP systolic 139–172; BP diastolic 69–92; PULSE 60–76; RESP 12–18; TEMP 36.6–36.7; O2SAT 100; BMI 23.7
[2024-02-11 06:09] LABS: Basophils Absolute Auto 0.1 K/mm3 (0.0-0.1); Basophils Percent Auto 1.2 % (0.2-1.2); Eosinophils Absolute Auto 0.2 K/mm3 (0-0.3); Eosinophils Percent Auto 2.9 % (0-4.4); Hematocrit 42.5 % (42.0-52.0); Hemoglobin 13.7 g/dL (14.0-18.0); Immature Granulocyte Absolute 0.01 K/mm3 (0.00-0.031); Immature Granulocyte Percent A 0.2 % (0-0.5); Lymphocytes Absolute Auto 2.05 K/mm3 (0.9-3.2); Lymphocytes Percent Auto 31.2 % (18.3-44.2); Mean Corpuscular HGB Conc 32.2 g/dl (32-36); Mean Corpuscular Hemoglobin 33.7 pg (26-34); Mean Corpuscular Volume 104.7 fl (80-100); Mean Platelet Volume 9.9 fl (7.4-10.4); Monocytes Absolute Auto 0.4 K/mm3 (0.1-0.6); Monocytes Percent Auto 6.7 % (2.6-8.5); Neutrophils Absolute Auto 3.8 K/mm3 (1.3-6.7); Neutrophils Percent Auto 57.8 % (45.5-73.1); Platelet Count Result 253 k/mm3 (150-375); Red Blood Count 4.06 M/mm3 (4.6-6.20); Red Cell Distribution Width 14.3 % (11.5-14.5); White Blood Count 6.6 K/mm3 (4.5-10.0)
[2024-02-11 06:27] LABS: Alanine Aminotransferase 16 U/L (6-50); Albumin Level 3.1 g/dL (3.5-5.1); Alkaline Phosphatase 67 U/L (38-126); Anion Gap 10 mmol/L (4-12); Aspartate Amino Transferase 24 U/L (17-59); Bilirubin,Total 0.4 mg/dL (0.2-1.3); Blood Urea Nitrogen 11 mg/dL (9-20); Calcium 8.4 mg/dL (8.4-10.2); Carbon Dioxide 20 mmol/L (22-30); Chloride 107 mmol/L (98-107); Estimated CRCL calculation 60 ml/min; Estimated Glomerular Filt Rate > 60; Glucose 60 mg/dL (65-110); Potassium 3.5 mmol/L (3.4-5.0); Sodium 137 mmol/L (137-145)
[2024-02-11 06:38] LABS: Glucose Point of Care 71 mg/dl (65-105)
[2024-02-11 07:40] LABS: Glucose Point of Care 133 mg/dl (65-105)
[2024-02-11] MEDS: FINASTERIDE 5 MG TABLET PO (09:18)
[2024-02-11] MEDS: glyBURIDE 5 MG TABLET PO (09:19)
[2024-02-11] MEDS: ENOXAPARIN 40 MG/0.4 ML SYRINGE SUB-Q (09:23)
[2024-02-11 11:31] LABS: Glucose Point of Care 193 mg/dl (65-105)
[2024-02-11] MEDS: INSULIN ASPART (*BKC) 100 UNITS/ML SUB-Q ×2 (11:43→21:36)
[2024-02-11] MEDS: LINEZOLID 600 MG TABLET PO ×2 (13:09→21:35)
--- NOTE | 2024-02-11 13:59 | PM.IMPN ---
Progress Note: A&P Assessment and Plan (1) Uncontrolled type 2 diabetes mellitus: Qualifiers: Glycemic state: with hyperglycemia Qualified Code(s): E11.65 - Type 2 diabetes mellitus with hyperglycemia Status: Acute Assessment and Plan: Patient has uncontrolled diabetes mellitus with A1c greater than 14. has not been compliant with meds at home hold sq regimen: lantus 20u, premeal 5 unit, continue SSI with accucheks for today Had hypoglycemia this morning, Glyburide discontinued continue close monitoring (2) DKA (diabetic ketoacidosis): Qualifiers: Diabetes mellitus complication detail: without coma Diabetes mellitus type: type 2 Qualified Code(s): E11.10 - Type 2 diabetes mellitus with ketoacidosis without coma Code(s): E11.10 - Type 2 diabetes mellitus with ketoacidosis without coma Status: Acute Assessment and Plan: DKA resolved status post IV fluid and IV insulin. Started patient on subQ regimen as noted above. Monitor closely. (3) Benign prostatic hyperplasia: Qualifiers: Lower urinary tract symptom presence: unspecified whether lower urinary tract symptoms present Qualified Code(s): N40.0 - Benign prostatic hyperplasia without lower urinary tract symptoms Code(s): N40.0 - Benign prostatic hyperplasia without lower urinary tract symptoms Status: Acute Assessment and Plan: Will continue home finasteride. (4) Generalized weakness: Code(s): R53.1 - Weakness Status: Acute Assessment and Plan: Likely due to hyperglycemia. PT OT on board. (5) Hypertension: Qualifiers: Hypertension type: primary hypertension Qualified Code(s): I10 - Essential (primary) hypertension Code(s): I10 - Essential (primary) hypertension Status: Acute Assessment and Plan: Blood pressure is stable. Patient has not had his blood pressure medications refilled as far as I can tell since last April. Blood pressure mildly elevated, restart home medicines. (6) Abnormal finding on urinalysis: Code(s): R82.90 - Unspecified abnormal findings in urine Status: Acute Assessment and Plan: Patient does have nitrates in his urine and greater than 100 wbc's. The patient may have underlying UTI. Will send the urine for culture. Will continue empiric antibiotic therapy with Rocephin Urine culture pending. (7) UTI (urinary tract infection): Code(s): N39.0 - Urinary tract infection, site not specified Status: Acute Assessment and Plan: patient noted dysuria UTI positive for Staph aureus Started on Linezolid f/u finalization of urine culture Plan Patient has been admitted as observation status. Subjective Date/time seen: 02/11/24 13:59 Interval history: patient was hypoglycemia this morning also he has been on Glyburide which has been disconitnued this morning we will monitor one more day Review of Systems Review of Systems: 12 systems were reviewed with pertinent positives and negatives per HPI. Except as documented in the HPI, all other systems were reviewed and are negative. ROS unobtainable: Yes unobtainable due to mental status Exam Narrative: Weight 77 kg BMI 26.6 Const: Other: Thin body habitus, no acute distress, appears stated age HENMT: Other: Mucous membranes are dry, edentulous in the upper jaw, few remaining teeth in lower jaw that are in poor condition, no oral pharyngeal erythema, head is normocephalic atraumatic Eyes: Other: Pupils are equal and reactive, evidence of lens replacements in bilateral eyes, mild conjunctival erythema of the right eye, no scleral icterus Neck: Other: No JVD, supple, nontender Resp: Other: Clear to auscultation bilaterally, no increased work of breathing Cardio: Other: Regular rate, regular rhythm, 2+ bilateral radial pedal pul
[2024-02-11 17:09] LABS: Glucose Point of Care 109 mg/dl (65-105)
[2024-02-11 19:51] LABS: Glucose Point of Care 216 mg/dl (65-105)
[2024-02-11] MEDS: SODIUM CHLORIDE 0.9% IV 1,000 ML 100 ML IV CONT (21:38)
[2024-02-12] VITALS: PULSE 65
[2024-02-12 04:00] VITALS: PULSE 56
[2024-02-12 05:33] VITALS: BP 168/75; PULSE 73; RESP 16; TEMP 36.2; O2SAT 100
[2024-02-12 06:17] LABS: Basophils Absolute Auto 0.1 K/mm3 (0.0-0.1); Basophils Percent Auto 0.8 % (0.2-1.2); Eosinophils Absolute Auto 0.3 K/mm3 (0-0.3); Eosinophils Percent Auto 4.6 % (0-4.4); Hematocrit 38.3 % (42.0-52.0); Hemoglobin 13.5 g/dL (14.0-18.0); Immature Granulocyte Absolute 0.07 K/mm3 (0.00-0.031); Immature Granulocyte Percent A 1.1 % (0-0.5); Lymphocytes Percent Auto 31.6 % (18.3-44.2); Mean Corpuscular HGB Conc 35.2 g/dl (32-36); Mean Corpuscular Hemoglobin 33.8 pg (26-34); Mean Corpuscular Volume 95.8 fl (80-100); Mean Platelet Volume 10.4 fl (7.4-10.4); Monocytes Absolute Auto 0.5 K/mm3 (0.1-0.6); Monocytes Percent Auto 7.4 % (2.6-8.5); Neutrophils Absolute Auto 3.4 K/mm3 (1.3-6.7); Neutrophils Percent Auto 54.5 % (45.5-73.1); Platelet Count Result 257 k/mm3 (150-375); Red Cell Distribution Width 13.7 % (11.5-14.5); White Blood Count 6.3 K/mm3 (4.5-10.0)
[2024-02-12 06:30] LABS: Alanine Aminotransferase 15 U/L (6-50); Albumin Level 2.9 g/dL (3.5-5.1); Alkaline Phosphatase 69 U/L (38-126); Anion Gap 8 mmol/L (4-12); Aspartate Amino Transferase 30 U/L (17-59); Bilirubin,Total 0.5 mg/dL (0.2-1.3); Blood Urea Nitrogen 9 mg/dL (9-20); Calcium 8.1 mg/dL (8.4-10.2); Carbon Dioxide 23 mmol/L (22-30); Chloride 103 mmol/L (98-107); Estimated CRCL calculation 54 ml/min; Estimated Glomerular Filt Rate > 60; Glucose 194 mg/dL (65-110); Magnesium 1.7 mg/dL (1.6-2.3); Potassium 4.2 mmol/L (3.4-5.0); Sodium 134 mmol/L (137-145)
[2024-02-12 08:21] LABS: Glucose Point of Care 182 mg/dl (65-105)
[2024-02-12] MEDS: FINASTERIDE 5 MG TABLET PO (09:38)
[2024-02-12] MEDS: LINEZOLID 600 MG TABLET PO (09:38)
[2024-02-12] MEDS: hydroCHLOROthiazide 12.5 MG CAPSULE PO (09:38)
[2024-02-12] MEDS: amLODIPine BESYLATE 5 MG TABLET PO (09:38)
[2024-02-12] MEDS: INSULIN ASPART (*BKC) 100 UNITS/ML SUB-Q (09:40)
[2024-02-12] MEDS: ENOXAPARIN 40 MG/0.4 ML SYRINGE SUB-Q (09:40)
[2024-02-12] MEDS: SODIUM CHLORIDE 0.9% IV 1,000 ML 100 ML IV CONT (09:50)
[2024-02-12] MEDS: INSULIN GLARGINE (*BKC) 100 UNITS/ML 20 UNITS SUB-Q (09:52)
--- NOTE | 2024-02-12 10:50 | PM.DS ---
DS: Admitting Diagnosis Discharge Date 02/12/24 Admitting Diagnosis DKA DS: Discharge Diagnosis Discharge Diagnosis (1) DKA (diabetic ketoacidosis): Qualifiers: Diabetes mellitus complication detail: without coma Diabetes mellitus type: type 2 Qualified Code(s): E11.10 - Type 2 diabetes mellitus with ketoacidosis without coma Code(s): E11.10 - Type 2 diabetes mellitus with ketoacidosis without coma Status: Acute DS: Summary Hospital Course Hospital Course: 84-year-old male with past medical history of essential hypertension, type 2 diabetes mellitus, and BPH who presented to ER with generalized weakness for 5 days. The patient is oriented only to his name and the name of the hospital. He thinks that he is in [place]. He was unable to even give me gas as to the month or the year. Patient is a diabetic but has not had any of his diabetic medications filled since last fall. According to the ER documentation the patient was so weak that he needed to start using a cane over the last 5 days. He denies any nausea or vomiting. He denies difficulty with urination or dysuria. He denies changes in urinary frequency. His glucoses on arrival to ER were 573. On review of external med reconciliation the patient does not appear to of had his medications refilled since last April. He used to work for the [employer] I am wondering if the patient may get his medications from the [employer]. He denies any complaints currently. He states that he wears a partial denture in his upper jaw but he is completely edentulous in his upper jaw. He states he wears a complete denture in his lower jaw but he has remaining teeth in his lower jaw. Patient is a terrible historian and review of systems is not reliable. The patient reports that he has chronic memory difficulties and is not unusual for him to not know this information. Patient was managed for DKA, Glyburide was discontinued for for hypoglycemia episode. He also had asymptomatic a UTI and urine culture was positive for MSSA, discharged on total dose of 7 days of Doxycycline. Hypertension, patients BP was elevated all through hospitalization. he was started on Amlodipine and HCTZ f/u with PCP in 3-5 days Assessment and plan Assessment and Plan (1) Uncontrolled type 2 diabetes mellitus: Qualifiers: Glycemic state: with hyperglycemia Qualified Code(s): E11.65 - Type 2 diabetes mellitus with hyperglycemia Status: Acute Assessment and Plan: Patient has uncontrolled diabetes mellitus with A1c greater than 14. has not been compliant with meds at home discontinued Glyburide due to hypoglycemia Discharged on lantus 12u and premeal lispro 5 u F/u with PCP in 3-5 days (2) DKA (diabetic ketoacidosis): Qualifiers: Diabetes mellitus complication detail: without coma Diabetes mellitus type: type 2 Qualified Code(s): E11.10 - Type 2 diabetes mellitus with ketoacidosis without coma Code(s): E11.10 - Type 2 diabetes mellitus with ketoacidosis without coma Status: Acute Assessment and Plan: DKA resolved status post IV fluid and IV insulin. continue above care plan (3) Benign prostatic hyperplasia: Qualifiers: Lower urinary tract symptom presence: unspecified whether lower urinary tract symptoms present Qualified Code(s): N40.0 - Benign prostatic hyperplasia without lower urinary tract symptoms Code(s): N40.0 - Benign prostatic hyperplasia without lower urinary tract symptoms Status: Acute Assessment and Plan: Will continue home finasteride. (4) Generalized weakness: Code(s): R53.1 - Weakness Status: Acute Assessment and Plan: Likely due to hyperglycemia. PT OT on board. (5) Hypertension: Qualifiers: Hypertension type: primary hypertension Qualified Code(s): I10 - Essential (primary) hypertension Code(s): I10 - Ess
[2024-02-12 12:00] LABS: Glucose Point of Care 222 mg/dl (65-105)
--- NOTE | 2024-03-03 14:28 | PCCDE ---
03/03/24 This [facility] attempted phone follow up. Outgoing message stating Sorry, mailbox is full [facility]J
== END 2024-02-12 13:50 | disposition home health service (06) ==
LOC: ANHED 19:03 → ANH3MEDSUR 02-10 14:13
PROVIDERS: Emergency Medicine; Admitting Provider Family Medicine; Emergency Provider Emergency Medicine; Visit Provider Internal Medicine
DX: E11.10 Type 2 diabetes mellitus with ketoacidosis without coma (principal); E11.65 Type 2 diabetes mellitus with hyperglycemia; N39.0 Urinary tract infection, site not specified; B95.7 Other staphylococcus as the cause of diseases classified elsewhere; R53.1 Weakness; I10 Essential (primary) hypertension; N40.0 Benign prostatic hyperplasia without lower urinary tract symptoms; Z79.84 Long term (current) use of oral hypoglycemic drugs; Z20.822 Contact with and (suspected) exposure to COVID-19
CPT/HCPCS: 36415; 71046; 80048; 80053; 81001; 82010; 82948; 83036; 83735; 84100; 85025; 87077; 87086; 87088; 87181; 87637; 93005; 96361; 96365; 96372; 96375; 96376; 97110; 97116; 97161; 97165; 97530; 97535; 99285; A9270; G0378; J0696; J1650; J1815; J3480; J7030